=== PATIENT | male | born 1990 | race Caucasian/White ===

== ENCOUNTER 2019-02-06 02:54 | Emergency (ER) ==
[~2019-02-06] VITALS: Ht 172.7 cm; Wt 127.3 kg
[2019-02-06 02:59] VITALS: BP 139/67
[2019-02-06] MEDS ORDERED: METF-960 PO (03:37)
[2019-02-06 03:40] LABS: GLUCOSE,POINT OF CARE 137 MG/DL (70-110)
== END 2019-02-06 07:07 | disposition left against medical advice (07) ==
LOC: EMS 02:55
DX: S01.81XA Laceration without foreign body of other part of head, initial encounter (principal); Y04.0XXA Assault by unarmed brawl or fight, initial encounter; Y93.89 Activity, other specified; Y92.89 Other specified places as the place of occurrence of the external cause; Y99.8 Other external cause status